=== PATIENT | male | born 1930 | race Caucasian/White ===

== ENCOUNTER 2017-07-15 09:30 | Outpatient (CLI) | payer MEDICARE ==
--- NOTE | 2017-07-15 12:23 | CT ---
CT OF THE ABDOMEN AND PELVIS WITH IV CONTRAST: INDICATION: History of prostate cancer, elevated PSA with prior postsurgical change of prostate biopsy, appendect duglas, nephrectomy, and a history of aggressive prostate cancer status post chemo and radiation therapy . There is concern for possible metastatic disease. COMPARISON: Prior CT examination of the abdomen dated 01/01/15 and 02/06/15. CONTRAST: 70 cc of Isovue 370 was administered for the exam. FINDINGS: Lung bases are clear. There is a 2.4 cm cyst seen within the right hepatic lobe adjacent to the gallbladder. A smaller cys t is seen within segment 6 of the right hepatic lobe on image 20 of series 2 which is subcentimeter i n size. There is a 7 mm cyst involving segment 6 of the right hepatic lobe on image 35 of series 2. Right adrenal gland is normal-appearing. There is postsurgical drainage of a left nephrectomy and le ft adrenalectomy. The pancreas and spleen appear within normal limits. There is a 5.5 cm cyst involving the superior pole of the right kidney. No lymphadenopathy or free fluid is evident. There are moderate calcifications noted involving the abdominal aorta. There is mild fold thickening involving the bladder which may be related to prior therapy changes or chronic bladder outlet obstruction. The residual prostate gland measures 4.1 cm. No pathologically enlarged lymph nodes are evident within the pelvis. There is a residual portion of the left distal u reter remaining in place with 7.6 mm stone. This stone was present on the CT examination of 01/01/15 and may reflect a chronic ureteral calcification. There are fat-containing bilateral inguinal hernias. There is scattered degenerative and osteoarthritic change. No definite focal osteolytic or osteoblas tic lesion is identified. There is postsurgical change involving the lower lumbar spine. IMPRESSION: 1. No CT evidence of metastatic disease within the abdomen and pelvis. 2. Right hepatic lobe cysts. 3. Postsurgical change of the left nephrectomy and adrenalectomy. 4. Right renal cyst. 5. Stable small calcification within the distal left ureteral stump. 6. Wall thickening involving bladder may reflect changes of prior radiation therapy or chronic bladd er outlet obstruction. A cystitis cannot be entirely excluded. Would recommended correlation with t he clinical exam and any urinary laboratories. POS: [facility]
--- NOTE | 2017-07-15 14:13 | NM ---
NUCLEAR MEDICINE BONE SCAN WHOLE BODY: (SKELETAL SCINTIGRAPHY) DATE: 07/15/17. HISTORY: An 86-year-old male with prostate cancer, with rapidly rising serum PSA levels. TECHNIQUE: IV injection of [id number]: 29.2 mCi. 3 hour delayed whole body skeletal scintigraphy in anterior and posterior views. COMPARISON: 11/14/15. FINDINGS: Again noted are the photopenic defects with mildly increased uptake at the bilateral knees representi ng arthroplasty changes. The degree of uptake around the right knee prosthesis has significant decre ased since the prior study. There are small foci of increased uptake in the bilateral feet, nonspecific, presumably representing arthritic changes. There are several new small focal areas of increased uptake on the current study that were not presen t previously: Inferior medial tip of the body of the right scapula, left posterior mid cervical spin e, junction between right posterior element of L5 in the lumbar spine with the adjacent medial aspect right iliac wing, and a tiny, subtle focus in the left upper sacral body. There are no foci of increased uptake visualized in the long bones, ribs, or calvarium. IMPRESSION: At least 4 small new foci of increased uptake, 3 in the axial skeleton, and 1 in the right scapula. These are nonspecific. The ones in the C-spine and sacrum could certainly represent degenerative jay nges, and those are favored to be degenerative changes. The one at the tip of the right scapula shou ld be further investigated with a noncontrast CT of the chest, with attenuation to this particular ar ea and reference to the bone scan report. CASSANDRA Jordan POS: [facility]
== END 2017-07-15 09:31 | disposition home or self-care (01) ==
LOC: CT 09:30
PROVIDERS: ATTEND Radiology Radiation Oncology
DX: C61 Malignant neoplasm of prostate (principal); K76.89 Other specified diseases of liver; N28.1 Cyst of kidney, acquired; E89.6 Postprocedural adrenocortical (-medullary) hypofunction; T83.192A Other mechanical complication of indwelling ureteral stent, initial encounter; Z90.5 Acquired absence of kidney
CPT/HCPCS: 74177; 78306; 82565; A9503

== ENCOUNTER 2018-03-08 09:51 | Outpatient (CLI) | payer MEDICARE ==
--- NOTE | 2018-03-08 12:40 | MRI ---
MRI THORACIC SPINE WITHOUT CONTRAST: INDICATIONS: History of thoracic disk degenerative disease. The patient has been having pain between the shoulder blades for three years but it has recently gotten worse. COMPARISON: CT abdomen and pelvis dated 07/15/2017. TECHNIQUE: Multiplanar, multisequence MR images were obtained of the thoracic spine without IV contrast. FINDINGS: There are right renal cysts that are better detailed on the recently performed CT of the abdomen and pelvis dated 07/15/2017. There are small bony hemangioma within the T5-T8 vertebral levels. There is a small Schmorl's node i nvolving the inferior endplate of T7. The thoracic spinal cord demonstrates normal signal intensity and contour. At the T1-T2 level, there is no appreciable central canal or neural foraminal narrowing. At T2-T3, there is a mild broad-based bulge without appreciable central canal or neural foraminal ann rowing. At T3-T4, there is a left paracentral protrusion causing mild effacement of the left ventral lateral spinal cord without definite cord signal abnormality. No neural foraminal narrowing is evident. At T4-T5, there is a broad-based bulge causing mild effacement of the ventral spinal cord without def inite cord signal abnormality. No neural foraminal narrowing is evident. At T5-T6, there is no appreciable central canal or neural foraminal narrowing. At the T6-T7 level, there is no appreciable central canal or neural foraminal narrowing. At T7-T8, there is a mild broad-based bulge without appreciable central canal or neural foraminal ann rowing. At T8-T9, there is a mild central protrusion, but no appreciable central canal or neural foraminal na rrowing. At T9-T10, there is a mild broad-based bulge without appreciable central canal or neural foraminal na rrowing. At T10-T11, there is no appreciable central canal or neural foraminal narrowing. At T11-T12, there is no appreciable central canal or neural foraminal narrowing. At T12-L1, there is no appreciable central canal or neural foraminal narrowing present. IMPRESSION: 1. Multilevel spondylosis of the thoracic spine with mild disk bulges and protrusions, as detailed a beverly. There is mild effacement of the ventral spinal cord at T3-T4 and T4-T5, as detailed above. No neural foraminal narrowing is demonstrated. 2. Right renal cyst. POS: [facility]
== END 2018-03-08 09:52 | disposition home or self-care (01) ==
LOC: SCSMRI 09:51
PROVIDERS: ATTEND Nurse Practitioner Family
DX: M51.34 Other intervertebral disc degeneration, thoracic region (principal); M47.894 Other spondylosis, thoracic region; M51.24 Other intervertebral disc displacement, thoracic region; M51.84 Other intervertebral disc disorders, thoracic region; G95.89 Other specified diseases of spinal cord; N28.1 Cyst of kidney, acquired
CPT/HCPCS: 72146

== ENCOUNTER 2018-08-18 08:24 | Outpatient (CLI) | payer MEDICARE ==
--- NOTE | 2018-08-18 14:48 | NM ---
WHOLE BODY BONE SCAN: INDICATION: History of prostatic metastatic disease. RDIOPHARMACEUTICAL: 31.5 mCi Technetium 99m MDP IV. COMPARISON: Prior bone scan dated 07/15/2017. FINDINGS: Since the comparison examination, the lesion involving the inferior pole of the right scapula has bec ome more prominent. The activity involving the right sacrum appears stable. Mild uptake within the right aspect of the suspected L4 vertebral level persists. Mild activity involving the lower mid cer vical spine is again demonstrated. There are photopenic defects seen within the region of the knees consistent with total knee replacement. Degenerative activity is seen again involving the shoulders, knees, sternoclavicular joints, and thoracolumbar spine. IMPRESSION: Slight interval worsening of the osteoblastic metastatic disease with increased radiotracer accumulat ion seen involving the lesion affecting the inferior pole of the right scapula. Prominent lesion inv olving the right aspect of the sacrum is similar appearing. The lesion involving the right aspect of the suspected L4 level and mid to lower cervical spine is stable. POS: [facility]
== END 2018-08-18 08:25 | disposition home or self-care (01) ==
LOC: NM 08:24
PROVIDERS: ATTEND Internal Medicine Medical Oncology
DX: C61 Malignant neoplasm of prostate (principal); M53.3 Sacrococcygeal disorders, not elsewhere classified
CPT/HCPCS: 78306; A9503

== ENCOUNTER 2019-05-16 10:42 | Outpatient (CLI) | payer MEDICARE ==
--- NOTE | 2019-05-16 15:38 | NM ---
Radionucleotide bone scan HISTORY: Prostate cancer. Osseous metastasis. Restaging. COMPARISON: 08/18/2018. FINDINGS: Small focus of increased uptake is again seen at the inferior tip of the right scapula. Wit h the arms elevated, a second small focus of increased uptake is now apparent. It likely is associated with the lateral aspect of right rib 5 (or otherwise, a second lesion along the medial mar gin of the scapula). Focal area of abnormal uptake involving the upper medial right side of the sacrum is similar in appearance to the prior study. A small focus involving the left midportion of th e sacrum is also stable uptake at the right side of the L4 vertebral body is stable. No new abnormalities are evident. IMPRESSION: Lesions involving the right chest, lower lumbar spine, and sacrum are stable.
== END 2019-05-16 10:43 | disposition home or self-care (01) ==
LOC: NM 10:42
PROVIDERS: ATTEND Internal Medicine Medical Oncology
DX: C79.51 Secondary malignant neoplasm of bone (principal); C61 Malignant neoplasm of prostate; M89.9 Disorder of bone, unspecified
CPT/HCPCS: 78306; A9503